=== PATIENT | female | born 1995 | race Caucasian/White ===

== ENCOUNTER 2020-06-14 21:26 | Emergency (ER) | payer BC ==
[~2020-06-14] VITALS: Ht 175.3 cm; Wt 122.0 kg
[2020-06-14 21:34] VITALS: Ht 175.3 cm; Wt 122.0 kg
[2020-06-14 22:27] LABS: UA SPECIFIC GRAVITY <=1.005 (1.005-1.035); microscopic required? YES; urine erythrocyte TRACE (NEGATIVE)
[2020-06-14 22:31] LABS: BASOPHIL % 0.5 % (0-2); PLATELET COUNT 274 x10^3mcL (130-400); RED CELL DISTRIBUTION WIDTH 11.8 % (11.5-14.5)
[2020-06-14 22:32] LABS: CALCIUM 8.9 mg/dL (8.5-10.1); CARBON DIOXIDE 22.9 mmol/L (21-32); CREATININE SERUM 1.2 mg/dL (0.6-1.0); POTASSIUM SERUM 3.5 mmol/L (3.5-5.1)
[2020-06-14 22:44] LABS: BILIRUBIN TOTAL 0.2 mg/dL (0.20-1.00); MAGNESIUM 2.3 mg/dL (1.8-2.4); TOTAL PROTEIN, SERUM 8.2 g/dL (6.4-8.2)
[2020-06-14 22:48] LABS: T4(THYROXINE) 14.7 ug/dL (4.7-13.3)
[2020-06-14 22:55] LABS: AMPHETAMINE QUAL UR NONE DETECTED (See below)
[2020-06-14 23:47] VITALS: BP 121/83
== END 2020-06-15 | disposition home or self-care (01) ==
LOC: ED 21:26
PROVIDERS: Emergency Medicine
DX: E03.9 Hypothyroidism, unspecified (principal); R00.0 Tachycardia, unspecified; I10 Essential (primary) hypertension; G43.909 Migraine, unspecified, not intractable, without status migrainosus; E66.01 Morbid (severe) obesity due to excess calories; Z68.39 Body mass index [BMI] 39.0-39.9, adult
CPT/HCPCS: 82962; 83880; 85378; Q0092